=== PATIENT | female | born 1945 | race Caucasian/White ===

== ENCOUNTER 2018-04-12 09:29 | Emergency (ER) | payer OTHER ==
[~2018-04-12] VITALS: Ht 152.4 cm; Wt 70.3 kg
[2018-04-12] MEDS ORDERED: INTESTINEX680 M1 PO (12:14)
[2018-04-12] MEDS ORDERED: CIPRO500 MG PO (12:14)
== END 2018-04-12 12:31 | disposition home or self-care (01) ==
LOC: ER 09:29
DX: J11.1 Influenza due to unidentified influenza virus with other respiratory manifestations (principal); N39.0 Urinary tract infection, site not specified; B96.89 Other specified bacterial agents as the cause of diseases classified elsewhere